=== PATIENT | male | born 1960 | race Asian ===

== ENCOUNTER 2018-06-18 21:25 | Emergency (ER) | payer OTHER, SELFPAY ==
[~2018-06-18] VITALS: Ht 165.1 cm; Wt 68.0 kg
[2018-06-18 21:23] VITALS: BP 162/98
[~2018-06-18 21:25] MED LIST: IBUPROFEN600 MG ORAL; NORCO 5-325 TA1 EACH ORAL
[2018-06-18] MEDS ORDERED: Morphine Sulfate 4mg/ml Inj (IV/IM USE ONLY) IM ONE (21:30)
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
[2018-06-18] MEDS ORDERED: Norco 5mg/325mg tab ORAL ONE (22:30)
[2018-06-18] MEDS ORDERED: IBUPROFEN600 MG ORAL (23:20)
[2018-06-18 23:22] VITALS: BP 162/98
--- NOTE | 2018-06-19 13:47 | Diagnostic Imaging Report ---
Indication: Back pain Technique: Continuous helical transaxial imaging of the lumbar spine was obtained from the lung bases to the pubic symphysis. No IV contrast was administered. Coronal 2-D reformats were also obtained. Study obtained in a Siemens sensation [address] Total Dose length Product (DLP): 392.[address] Dose Index Volume (CTDIvol): 11.56 mGy Comparison: None Findings: There is no evidence of an acute fracture or malalignment. Height and configuration of the vertebral bodies and intervertebral discs are within normal limits. The facets are unremarkable. There is no soft tissue swelling. Mild aortoiliac calcifications are present consistent with atherosclerotic disease. The bladder may be mildly distended. Impression: Negative for acute injury. [facility] has communicated the preliminary results to the Emergency Department. Their findings are largely concordant with this report. The CT scanner at [facility] is accredited by the [employer] and the scans are performed using dose optimization techniques as appropriate to a performed exam including Automatic Exposure control.
--- NOTE | 2018-06-19 13:47 | Diagnostic Imaging Report ---
Indication: Headache. Head trauma Technique: Contiguous 5 mm thick transaxial imaging of the head obtained in a Siemens Sensation [address] scanner. Soft tissue and bone windows generated. Automatic Exposure Control was utilized. Total Dose length Product (DLP): 1361.[address] Dose Index Volume (CTDIvol): 70.38 mGy Comparison: none Findings: There is mild prominence of the ventricles, basal cisterns, and cerebral sulci consistent with atrophy. Mild, nonspecific, white matter hypoattenuation is noted throughout the brain consistent with chronic small vessel disease. There is no midline shift, edema, acute hemorrhage, mass effect, or abnormal extra-axial fluid collections. Bones and extra osseous soft tissues are unremarkable. Impression: No acute intracranial bleed, mass effect or edema. Mild atrophy of the brain. Nonspecific white matter hypoattenuation probably due to chronic small vessel disease. The CT scanner at [facility] is accredited by the [employer] and the scans are performed using dose optimization techniques as appropriate to a performed exam including Automatic Exposure control.
== END 2018-06-18 23:25 | disposition home or self-care (01) ==
LOC: EDBD 21:25 → EMR 21:55
DX: S09.90XA Unspecified injury of head, initial encounter (principal); S39.012A Strain of muscle, fascia and tendon of lower back, initial encounter; Y04.2XXA Assault by strike against or bumped into by another person, initial encounter; Y92.89 Other specified places as the place of occurrence of the external cause; R51 Headache
CPT/HCPCS: 70450; 72131; 96372; 99284; J2270